=== PATIENT | female | born 1985 | race Caucasian/White ===

== ENCOUNTER 2019-10-15 07:37 | Outpatient (CLI) | payer BC ==
--- NOTE | 2019-10-15 08:59 | MRI ---
MRI of thebrain: 10/15/2019 COMPARISON:None available HISTORY:Moyamoya disease TECHNIQUE: Multiplanar multisequence MR imaging of thebrain without contrast Findings:There is evidence of prior right temporal craniotomy. The diffusion weighted imaging demonst rates no evidence for acute infarction. The axial gradient echo imaging demonstrates no evidence for intracranial hemorrhage. There are multiple foci of increased T2 and FLAIR signal within the deep, periventricular, and subcor tical white matter clustered within the posterior left frontal region. Encephalomalacia is noted in the posterior superior lateral left frontoparietal region as well. There is no midline shift or mass effect. No ventricular enlargement. No significant white matter sig nal abnormality on the right. Regional bone marrow signal intensity appears within normal limits. Arterial flow voids at the axial level of the skull base appear grossly unremarkable on the T2-weight ed imaging. There is mild polypoid mucosal thickening involving the maxillary sinus on the left. IMPRESSION:Encephalomalacia and small vessel disease on the left with evidence of prior left sided cr aniotomy. No evidence for acute infarction or intracranial hemorrhage. The technologist reports that the patient has prior imaging which will be obtained at a later time. O nce the prior imaging is obtained and addendum will be placed on this report for comparison purposes.
--- NOTE | 2019-10-15 10:20 | MRI ---
MAGNETIC RESONANCE ANGIOGRAM HEAD NONCONTRAST: Date: 10/15/2019 HISTORY: 34-year-old female with Moyamoya disease. ICD-10: I67.5 COMPARISON: Currently none available. Patient has had previous imaging studies in [place]. TECHNIQUE: 3D [id number] MRA acquired in multiple axial slabs through [place], to the mid body leve l of the lateral ventricles. Source imaging and 3D MIP reconstructions. FINDINGS: There is moderate stenosis at the left carotid terminus. There are multifocal severe stenoses of the M1 segment of the left middle cerebral artery, including at its origin, and severe stenosis of the pr oximal portion of the A1 segment of the left anterior cerebral artery, beginning at its origin. The bifurcation-trifurcation branches of the left MCA are diffusely narrow in caliber compared to tho se of the contralateral right side. The left superficial temporal artery and its branches are slightl y large in caliber. There are signs of previous left temporal craniotomy. There may be anastomosis be tween the left superficial temporal artery and adjacent intracranial artery branches. There is one, short, slightly dilated left lenticulostriate branch arising from the severely stenotic left M1 MCA. However, there are no additional such prominent lenticulostriate branches that would be expected for Moyamoya disease. The left A2 segment appears normal. Otherwise, the rest of the left carotid siphon, entire right carotid siphon, right anterior and right middle cerebral arteries and their branches, are normal. The intracranial right vertebral artery is diminutive but otherwise normal. The bilateral PICAs, intracranial vertebrals, basilar, posterior cer ebrals, superior cerebellars, all appear normal. There is a left posterior communicating artery and a n anterior communicating artery. IMPRESSION: 1. There are some findings that are consistent with Moyamoya syndrome/phenomenon, but not Moyamoya d isease. 2. In this patient, the disease is unilateral on the left, with multifocal severe stenosis of the M1 segment of the left middle cerebral artery and A1 segment of the left anterior cerebral artery; and subsequently small caliber of branches of the left middle cerebral artery. 3. Evidence for possible left superficial temporal artery anastomosis with branches of the left MCA. 4. The expected large number of enlarged and tortuous left lenticulostriate branches of Moyamoya is absent, except for one such arterial branch. 5. The contralateral right anterior circulation is normal. 6. If and when the prior imaging studies from [place] become available, an addendum can be issued to this report with comparison. POS: [facility]
== END 2019-10-15 07:38 | disposition home or self-care (01) ==
LOC: TBSIIMAG 07:37
PROVIDERS: ATTEND Neurological Surgery
DX: I67.5 Moyamoya disease (principal); I66.02 Occlusion and stenosis of left middle cerebral artery; G93.89 Other specified disorders of brain; I77.89 Other specified disorders of arteries and arterioles; Z98.890 Other specified postprocedural states
CPT/HCPCS: 70544; 70551

== ENCOUNTER 2020-10-24 08:39 | Outpatient (CLI) | payer BC ==
--- NOTE | 2020-10-24 10:02 | MRI ---
Magnetic resonance angiogram MRA head noncontrast: DATE: 10/24/2020 HISTORY: 35-year-old female with moyamoya disease I 67.5. Follow-up. COMPARISON: 10/15/2019 TECHNIQUE: 3-D [id number] MRA in multiple axial slabs. Source images and 3-D MIP reconstructions evaluated. FINDINGS: Left temporal craniotomy changes. Enlarged caliber of left superficial temporal artery, with anastomo sis to left lateral peripheral MCA branches. Mild to moderate stenosis at left carotid terminus. Multifocal severe stenoses of M1 segment of left MCA, including its origin. Severe stenosis of proximal portion of A1 segment of left CONNIE. The left MCA bifurcation/trifurcation branches are diffusely small in caliber compared to that there contralateral right counterparts. A single short dilated (with beaded appearance) left lenticulostriate branch arising from the severel y stenotic left M1 segment of left MCA, which is expected with moyamoya. However, there are no additional such dilated lenticulostriate branches that would be seen with moyamoya. Left A2 segment, right CONNIE A1 and A2 segments, right MCA M1 segment, M2 segments, and M3 segments, en tire right carotid siphon, left cavernous and petrous segments of left carotid segment, intracranial vertebrals, basilar, bilateral photoengraver apprentice, bilateral superior cerebellars, and bilateral PICA, are normal. Diminutive intracranial right vertebral. No evidence of aneurysm larger than 3 mm. No interval change overall IMPRESSION: 1) there are some features of unilateral left moyamoya syndrome/phenomenon consisting of the followin g findings: 2) severe stenoses of M1 segment of left middle cerebral artery and proximal portion of A1 segment of left anterior cerebral artery. 3) diffusely small caliber branches of the left middle cerebral artery. 4) a single short abnormally dilated left lenticulostriate branch. 5) status post treatment for moyamoya with left temporal artery bypass. 6) no interval change overall.
--- NOTE | 2020-10-24 10:08 | MRI ---
MRI BRAIN WITHOUT CONTRAST: INDICATION: Followup for Moyamoya disease. History of brain surgery. COMPARISON: Comparison is made to the previous MRI from this institution dated 10/15/2019. Comparison is made also made to an outside MRI exam dated 11/06/2014. FINDINGS: Ventricles remain normal size and position. No evidence of restricted diffusion. No mass or edema. White matter hyperintensities in the left cerebral hemisphere with mild volume loss in the left cereb ral hemisphere again noted. These findings are stable when compared to the prior studies. The white matter intensities on FLAIR sequence may represent chronic ischemic change given the history of Huerta huerta disease. There is evidence of left craniotomy. There is narrowing of the left carotid terminus and evidence of stenosis of the left middle cerebral artery. These findings appear stable as well. See associated MR angiography study. Visualized paranasal sinuses and mastoids are clear. Cerebral vessels otherwise show expected flow v oids. IMPRESSION: Stable MRI of brain when compared to prior studies as discussed above. POS: [facility]
== END 2020-10-24 08:40 | disposition home or self-care (01) ==
LOC: TBSIIMAG 08:39
PROVIDERS: ATTEND Student in an Organized Health Care Education/Training Program
DX: I67.5 Moyamoya disease (principal); I66.02 Occlusion and stenosis of left middle cerebral artery
CPT/HCPCS: 70544; 70551